=== PATIENT | female | born 1955 | race American Indian/Alaskan Native ===

== ENCOUNTER 2020-09-02 13:30 | Outpatient (CLI) | payer BC, OTHER ==
--- NOTE | 2020-09-02 16:58 | Vascular Lab Report ---
DUPLEX DOPPLER LOWER EXTREMITY ARTERIAL, BILATERAL INDICATION / CLINICAL INFORMATION: claudication. History of hyperlipidemia. Possible aortic aneurysm. 20 year pack history of smoking. TECHNIQUE: Arterial duplex examination of both lower extremities performed using B-mode, color flow a nd spectral Doppler assessment. FINDINGS: RIGHT: - Atherosclerotic Plaque: Mild atherosclerotic plaque. - Elevated Velocity (>200 cm/s): None. - Abnormal Waveform: None. LEFT: - Atherosclerotic Plaque: Mild atherosclerotic plaque. - Elevated Velocity (>200 cm/s): None. - Abnormal Waveform: None. ADDITIONAL FINDINGS: None. Right JOSELO: Not obtained Left JOSELO: Not obtained IMPRESSION: 1. No significant lower extremity peripheral artery disease. Ankle-Brachial Index (JOSELO): - Calcified arteries > 1.4 - Normal = 0.9-1.4 - Mild PAD = 0.7-0.89 - Moderate PAD = 0.51-0.69 - Severe PAD < 0.5 Doppler Waveform: - Triphasic is normal. - Biphasic is abnormal if clear transition from triphasic signal along vascular tree. - Monophasic is abnormal. Signer Name: Israel Alcantara MD Signed: 09/02/2020 4:53 PM Workstation Name: [id number]
--- NOTE | 2020-09-02 16:58 | Vascular Lab Report ---
DUPLEX DOPPLER ULTRASOUND CAROTID, BILATERAL INDICATION / CLINICAL INFORMATION: carotid stenosis. COMPARISON: None available. FINDINGS: RIGHT CAROTID: - PLAQUE ESTIMATE (%): < 50% - CCA velocity: 65 cm/sec. - ICA peak systolic velocity: 52 cm/sec. - ICA/CCA PSV Ratio: Less than 2 Right Vertebral Artery: Antegrade flow. LEFT CAROTID: - PLAQUE ESTIMATE (%): < 50% - CCA velocity: 47 cm/sec. - ICA peak systolic velocity: 74 cm/sec. - ICA/CCA PSV Ratio: Less than 2 Left Vertebral Artery: Antegrade flow. IMPRESSION: 1. Right Internal Carotid Artery: Less than 50% diameter stenosis. 2. Left Internal Carotid Artery: Less than 50% diameter stenosis. Velocity criteria are extrapolated from diameter data as defined by the Society of Radiologists in Ul trasound Consensus Conference, Radiology 2003; 229;340-346. NO STENOSIS (NORMAL) - Plaque = none; ICA PSV < 125 cm/sec; ICA/CCA PSV Ratio < 2.0 <50% STENOSIS - Plaque < 50%; ICA PSV < 125 cm/sec; ICA/CCA PSV Ratio < 2.0 50-69% STENOSIS - Plaque > 50%; ICA PSV = 125-230 cm/sec; ICA/CCA PSV Ratio = 2.0-4.0 >70% BUT <100% STENOSIS - Plaque > 50%; ICA PSV > 230 cm/sec; ICA/CCA PSV Ratio > 4.0 NEAR OCCLUSION - Plaque = visible lumen; ICA PSV = high/low/none; ICA/CCA PSV Ratio = variable TOTAL OCCLUSION - Plaque = no lumen; ICA PSV = none; ICA/CCA PSV Ratio = N/A Signer Name: Hernandez Cheng MD Signed: 09/02/2020 4:54 PM Workstation Name: [id number]
== END 2020-09-02 13:31 | disposition home or self-care (01) ==
LOC: VAS 13:30
PROVIDERS: ATTEND Surgery Vascular Surgery
DX: I70.213 Atherosclerosis of native arteries of extremities with intermittent claudication, bilateral legs (principal)
CPT/HCPCS: 93880; 93925

== ENCOUNTER 2021-01-06 09:35 | Outpatient (CLI) | payer OTHER ==
[2021-01-06 10:47] LABS: Blood Urea Nitrogen 10 mg/dL (7-17)
--- NOTE | 2021-01-06 13:38 | Cat Scan Report ---
CTA ABDOMEN, PELVIS, AND LOWER EXTREMITIES WITH CONTRAST INDICATION: ABDOMINAL AORTIC ANEURYSM W/O RUPTURE. TECHNIQUE: Axial CT images were obtained through the abdomen, pelvis and lower extremities after injection of 10 0 cc Omnipaque 350 IV contrast. 3 plane MIP reconstructions were produced. All CT scans at this [facility] ion are performed using CT dose reduction for ALARA by means of automated exposure control. COMPARISON: Bilateral lower semierect arterial Doppler performed on 09/02/2020. FINDINGS: Motion artifact limits the study. CTA ABDOMEN: Abdominal Aorta: An infrarenal abdominal aortic aneurysm measures 4.9 x 4.3 cm in axial dimensions on image 161 of series 2 with a length of 5.3 cm. There is moderate atherosclerosis without other signi ficant abnormalities. Celiac Artery: No significant abnormality. Superior Mesenteric Artery: No significant abnormality. Right Renal Artery: No significant abnormality. Left Renal Artery: No significant abnormality. Inferior Mesenteric Artery: No significant abnormality. CTA PELVIS: RIGHT: - Common Iliac Artery: A right common iliac artery aneurysm measures up to 2.7 cm on image 191 of ser ies 2. There is mild nonobstructive atherosclerosis without other significant abnormalities. - Internal Iliac Artery: There is mild nonobstructive atherosclerosis without other significant abnor malities. - External Iliac Artery: No significant abnormality. LEFT: - Common Iliac Artery: There is mild nonobstructive atherosclerosis without other significant abnorma lities. - Internal Iliac Artery: A 1.5 x 1.4 cm aneurysm is seen arising along the main portion of the vessel on image 221 of series 2. There is mild nonobstructive atherosclerosis without other significant abn ormalities. - External Iliac Artery: There is mild nonobstructive atherosclerosis without other significant abnor malities. CTA LOWER EXTREMITIES: RIGHT LOWER EXTREMITY: - Common Femoral Artery: No significant abnormality. - Superficial Femoral Artery: No significant abnormality. - Profunda Femoral Artery: No significant abnormality. - Popliteal Artery: No significant abnormality. - Anterior Tibial Artery: Patent and normal in caliber as origin with progressively diminutive calibe r and eventual occlusion along the distal third of the leg without distal reconstitution of flow. A p atent dorsalis pedis artery is supplied by collaterals. - Tibioperoneal Trunk: No significant abnormality. - Posterior Tibial Artery: No significant abnormality. - Peroneal Artery: No significant abnormality. - Ankle runoff: 2 vessel. LEFT LOWER EXTREMITY: - Common Femoral Artery: No significant abnormality. - Superficial Femoral Artery: No significant abnormality. - Profunda Femoral Artery: No significant abnormality. - Popliteal Artery: No significant abnormality. - Anterior Tibial Artery: No significant abnormality. - Tibioperoneal Trunk: No significant abnormality. - Posterior Tibial Artery: No significant abnormality. - Peroneal Artery: No significant abnormality. - Ankle runoff: Three vessel. NONTARGET STRUCTURES: CHEST: No significant abnormality. ABDOMEN:No significant abnormality. PELVIS:No significant abnormality. LOWER EXTREMITIES:No significant abnormality. SKELETAL: No acute abnormality. There are moderate degenerative changes of the spine. ADDITIONAL FINDINGS: None. IMPRESSION: 1. Uncomplicated infrarenal abdominal aortic aneurysm measuring 4.9 x 4.3 cm. 2. 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 3. 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 4. No significant abnormality of the arteries of the left lower extremity. 5. Additional findings as above. Signer Name: Blaise Ham MD Signed: 01/06/2021 1:33 PM Workstation Name: [id number]
== END 2021-01-06 09:36 | disposition home or self-care (01) ==
LOC: CT 09:35
PROVIDERS: ATTEND Surgery Vascular Surgery
DX: I71.4 Abdominal aortic aneurysm, without rupture (principal)
CPT/HCPCS: 36415; 75635; 82565; 84520; Q9967

== ENCOUNTER 2021-03-04 06:13 | Day surgery (SDC) | payer OTHER ==
[2021-03-04] MEDS ORDERED: ASPIRIN EC 325 MG TAB PO NR (06:45)
[2021-03-04 07:00] LABS: Basophils % (Auto) 0.7 % (0.0-1.8); Eosinophils # (Auto) 0.2 K/mm3 (0.0-0.4); Eosinophils % (Auto) 3.5 % (0.0-4.3); Hematocrit 36.1 % (30.3-42.9); Lymphocytes # (Auto) 1.5 K/mm3 (1.2-5.4); Lymphocytes % (Auto) 29.2 % (13.4-35.0); Mean Corpuscular HGB Conc 33 % (30-34); Mean Corpuscular Volume 96 fl (79-97); Monocytes # (Auto) 0.6 K/mm3 (0.0-0.8); Monocytes % (Auto) 11.4 % (0.0-7.3); Platelet Count 302 K/mm3 (140-440); Red Blood Count 3.77 M/mm3 (3.65-5.03); Red Cell Distribution Width 13.6 % (13.2-15.2)
[2021-03-04 07:10] LABS: INR 0.97 (0.87-1.13)
[2021-03-04 07:11] LABS: Blood Urea Nitrogen 10 mg/dL (7-17); Calcium 9.5 mg/dL (8.4-10.2); Hemolysis Index 0
[2021-03-04 07:15] LABS: BUN/Creatinine Ratio 25
[2021-03-04] MEDS: SODIUM CHLORIDE 0.9% 500 ML 500 ML IV SCH ×2 (07:25→10:53)
[2021-03-04] MEDS ORDERED: HEPARIN/NS 5000 UNIT/500ML 1,000 ML IR ONE (08:17)
--- NOTE | 2021-03-04 08:31 | Short Stay Summary ---
Short Stay Documentation Date of service: 03/04/21 Narrative H&P: This is a 65-year-old female comes here for preoperative evaluation prior to abdominal aortic aneurysm repair. Patient has history of hypertension for the last few months and has been on medications. Within the last few months she also has noticed exertional dyspnea particularly when she is walking on the steps. She feels quite winded and has difficulty walking any distance patient has no chest pain or palpitations. No previous mitral infarction or congestive heart failure. No history of diabetes or hyperlipidemia. Patient is a nonsmoker. She used to smoke but stopped in 2010. Drinks I'll call additionally. Family history is positive for hypertension and several snacks. No major surgeries in the past. - History Past Medical History: hypertension Past Surgical History: No surgical history Social history: smoking (history of smoking), other (HTN) - Allergies and Medications Current Medications: Allergies Penicillins Allergy (Verified 03/04/21 06:43) Unknown Home Medications Medication Instructions Recorded Confirmed Last Taken Type Amlodipine Besylate [Norvasc] 5 mg PO DAILY 03/04/21 03/04/21 03/03/21 History Aspirin/Acetaminophen/Caffeine 1 each PO DAILY PRN 03/04/21 03/04/21 03/03/21 History [YosvanyExepron's Ex-Str Powder Packet] Diclofenac Sodium 75 mg PO BID PRN 03/04/21 03/04/21 1 Week Ago History ~02/25/21 Active Medications Sodium Chloride (Nacl 0.9% 500 Ml) 500 mls @ 50 mls/hr IV DIRECT JAIMEE Stop: 03/04/21 16:59 Last Admin: 03/04/21 07:25 Dose: 50 mls/hr Documented by: - Physical exam General appearance: no acute distress HEENT: PERRLA Lungs: Clear to auscultation Heart: Regular rate, Normal S1, Normal S2 Gastrointestinal: normoactive bowel sounds Extremities: pulses intact Neurological: Normal gait - Brief post op/procedure progress note Date of procedure: 03/04/21 Pre-op diagnosis: pre-op eval Post-op diagnosis: other (normal coronaries) Anesthesia: local Estimated blood loss: minimal - Disposition Condition at discharge: Good Disposition: 01 HOME / SELF CARE / HOMELESS Short Stay Discharge Plan Activity: advance as tolerated Diet: low fat, low cholesterol, low salt Wound: keep clean and dry, per your surgeon's advice Follow up with: PRIMARY CARE, [Primary Care Provider] - 7 Days Forms: CardCath PCI D/C Instructions
[2021-03-04] MEDS: MIDAZOLAM 2 MG/2 ML INJ ONE ×3 (08:45→08:55)
[2021-03-04] MEDS: fentaNYL 100 MCG/2 ML INJ ONE ×3 (08:45→08:55)
[2021-03-04] MEDS: HEPARIN 10,000 UNITS/10 ML VIAL ONE ×2 (08:46→09:03)
[2021-03-04] MEDS: LIDOCAINE (2%) 20 MG/1 ML VIAL 20 ML MDV INFILTRATI ONE ×2 (08:46→09:00)
[2021-03-04] MEDS: VERAPAMIL 5 MG/2 ML INJ ONE ×2 (08:46→09:03)
--- NOTE | 2021-03-04 11:28 | Electrocardiograph Report ---
[facility] Test Date: 2021-03-04 Test Time: 07:14:09 Pat Name: KEKE GILMAN Department: Room: Gender: F Technical Sales Associate: SAUNDRA : 1955 Requested By: LINDA JERRY Order Number: [id number] Reading MD: Montse Miller Measurements Intervals [place] Rate: 98 P: 48 NM: 148 QRS: 44 QRSD: 74 T: 48 QT: 341 QTc: 434 Interpretive Statements Sinus rhythm No previous ECG available for comparison Electronically Signed On 03-04-2021 11:28:28 EST by Montse Miller
[2021-03-04 11:34] VITALS: BP 119/82
--- NOTE | 2021-03-04 12:53 | Cardiac Catherization Report ---
DATE OF SERVICE: 03/04/2021 CARDIAC CATHETERIZATION REPORT INDICATIONS: A 65-year-old female with a diagnosis of essential hypertension. She is scheduled for abdominal aortic aneurysm repair by Dr. Giovanni Bhatia and being evaluated preoperatively and for shortness of breath. Underwent a pharmacological stress testing on 02/27/2021, which was found to be mildly positive with a mild to moderately reduced perfusion defects of small to medium sized in the basal, mid apical, and inferoapical defects. Also, in the basal and mid septal segments are partially reversible. Ejection fraction was 59%. Echocardiogram was unremarkable except septal wall appears to be mildly hypokinetic. DESCRIPTION OF PROCEDURE: The patient was brought to the catheterization laboratory in a fasting condition. The patient was explained of the procedure, potential complications, and alternatives of therapy available. The patient was felt to be an appropriate candidate for moderate sedation and received IV Versed and fentanyl starting at 8:51 a.m. The patient was monitored throughout the procedure with pulse oximetry, EKG monitoring and hemodynamic monitoring. Subsequently, right wrist area was prepared with Betadine solution. Sterile drapes were applied. Local anesthesia was given using 2% lidocaine. Right radial artery puncture was made using 21-gauge arterial puncture needle. Subsequently, 5F Slender sheath was introduced and a 0.035-inch Glidewire was used to enter the ascending aorta. Subsequently, a 5-Amharic multipurpose catheter was used to obtain the angiograms of the left coronary artery in multiple views followed by angiogram of the left ventricle performed using hand injection in BIGGS projection. A 6-Amharic JR4 catheter was used to obtain the angiograms of the right coronary artery. At the end of the procedure, catheter and sheath were removed and hemostasis was obtained using radial band. At the end of the procedure, the patient was communicating normally, breathing normally. No focal deficits noted. The patient's moderate sedation started at 8:51 a.m. and ended at 9:09 a.m. The patient was transferred to the outpatient area in stable condition. Following findings were noted. HEMODYNAMICS: 1. Aortic pressure 150/90. Left ventricular pressure 150/21. No gradient across the aortic valve. Estimated ejection fraction 55%. 2. Left ventriculogram done in BIGGS projection showed normal sized left ventricle with normal contractility. End-diastolic and systolic volumes are normal. End-diastolic pressure is mildly elevated up to 21 mmHg. 3. Right coronary artery dominant vessel arises normally from right coronary cusp. Angiographically smooth and normal. 4. Left coronary artery arises normally from left coronary cusp. The left main is large, smooth and normal. LAD shows very minimal, less than 5% irregularities in the mid part. Otherwise, arteries are tortuous consistent with hypertensive disease, otherwise rest of the coronaries are angiographically smooth and normal. FINAL IMPRESSION: 1. Normal-sized left ventricle with normal contractility and mildly elevated end-diastolic pressure. 2. Minimal coronary artery disease, mainly in the LAD. Circumflex and dominant RCA are angiographically smooth and normal. PLAN: At this time is to continue risk factor modification and control of blood pressure. I explained the findings to the patient. The patient is "cleared" for her abdominal aortic aneurysm repair. No untoward complications were noted. TID: [id number] RECEIPT: [id number] HERNAN/CLARITA/SOPHIE SUMMERS
== END 2021-03-04 12:45 | disposition home or self-care (01) ==
LOC: CATHLABREC 06:13
PROVIDERS: ATTEND Internal Medicine
DX: R94.39 Abnormal result of other cardiovascular function study (principal); I25.10 Atherosclerotic heart disease of native coronary artery without angina pectoris; I10 Essential (primary) hypertension; Z87.891 Personal history of nicotine dependence; Z79.899 Other long term (current) drug therapy; Z72.89 Other problems related to lifestyle; Z98.890 Other specified postprocedural states; Z79.82 Long term (current) use of aspirin; Z88.0 Allergy status to penicillin
CPT/HCPCS: 36415; 80048; 85025; 85610; 85730; 93005; 93458; 99156; C1894; J1644; J2250; J3010; J7040; Q9967

== ENCOUNTER 2021-05-13 06:31 | Inpatient (IN) | payer OTHER ==
[2021-05-13] MEDS ORDERED: SODIUM CHLORIDE 0.9% 1000 ML 1,000 ML IV SCH ×3 (07:00→17:15)
[2021-05-13 07:22] LABS: Hematocrit 36.7 % (30.3-42.9); Hemoglobin 12.1 gm/dl (10.1-14.3); Mean Corpuscular HGB Conc 33 % (30-34); Mean Corpuscular Volume 93 fl (79-97); Platelet Count 291 K/mm3 (140-440); Red Blood Count 3.95 M/mm3 (3.65-5.03); Red Cell Distribution Width 14.6 % (13.2-15.2)
[2021-05-13 07:34] LABS: INR 0.87 (0.87-1.13)
[2021-05-13 07:35] LABS: Partial Thromboplastin Time 26.5 Sec. (24.2-36.6)
[2021-05-13 07:37] LABS: Blood Urea Nitrogen 14 mg/dL (7-17); Calcium 9.8 mg/dL (8.4-10.2); Hemolysis Index 1
[2021-05-13 07:39] LABS: BUN/Creatinine Ratio 35
--- NOTE | 2021-05-13 07:52 | Anesthesia Consultation ---
Anesthesia Consult and Med Hx - Airway Anesthetic Teeth Evaluation: Partials ROM Head & Neck: Adequate Mental/Hyoid Distance: Adequate Mallampati Class: Class III Intubation Access Assessment: Probably Good - Pulmonary Exam CTA: Yes - Cardiac Exam Cardiac Exam: RRR - Pre-Operative Health Status ASA Pre-Surgery Classification: ASA3 Proposed Anesthetic Plan: MAC - Pulmonary Hx Smoking: Yes Hx Asthma: No Hx Respiratory Symptoms: Yes (COVID 04/28/2021) SOB: Yes COPD: No Home Oxygen Therapy: No Hx Pneumonia: No Hx Sleep Apnea: No - Cardiovascular System Hx Hypertension: Yes Hx Coronary Artery Disease: No Hx Heart Attack/AMI: No Hx Angina: No Hx Percutaneous Transluminal Coronary Angioplasty (PTCA): No Hx Cardia Arrhythmia: No Hx Pacemaker: No Hx Internal Defibrillator: No Hx Valvular Heart Disease: No Hx Heart Murmur: No Hx Peripheral Vascular Disease: No - Central Nervous System Hx Neuromuscular Disorder: No Hx Seizures: No CVA: No Hx Psychiatric Problems: No - Gastrointestinal Hx Ulcer: No Hx Gastroesophageal Reflux Disease: No - Endocrine Hx Renal Disease: No Hx End Stage Renal Disease: No Hx Cirrhosis: No Hx Liver Disease: No Hx Insulin Dependent Diabetes: No Hx Non-Insulin Dependent Diabetes: No Hx Thyroid Disease: No Hx Hypothyroidism: No Hx Hyperthyroidism: No - Hematic Hx Anemia: No Hx Sickle Cell Disease: No - Other Systems Hx Alcohol Use: Yes Hx Substance Use: No Hx Cancer: No Hx Obesity: No
--- NOTE | 2021-05-13 07:53 | Anesthesia Day of Surgery ---
Anesthesia Day of Surgery - Day of Surgery Patient Examined: Yes Patient H&P Reviewed: Yes Patient is NPO: Yes Beta Blockers: No Cardiac Clearance: No Pulmonary Clearance: No
--- NOTE | 2021-05-13 08:12 | Short Stay Summary ---
Short Stay Documentation Date of service: 05/13/21 Narrative H&P: The patient is a 65-year-old female with a history of an abdominal aortic aneurysm and a right common iliac artery aneurysm. Her abdominal aortic aneurysm is approximately 5 cm with a common iliac artery aneurysm of approximately 3.8 cm. She underwent coil embolization of her right hypogastric artery and now requires endovascular repair of her abdominal aortic aneurysm. Her initial repair was delayed secondary to COVID infection. She is currently asymptomatic and has no abdominal tenderness. She has no additional complaints at this time. - History Past Medical History: hypertension, other (Ovarian cyst, tubal , Abdominal Aortic Aneurysm, Right Common Iliac Artery Aneurysm) Past Surgical History: , Other (Bilateral salpingectomy) Social history: no significant social history - Allergies and Medications Current Medications: Allergies Penicillins Allergy (Verified 03/04/21 06:43) Unknown Home Medications Medication Instructions Recorded Confirmed Last Taken Type Amlodipine Besylate [Norvasc] 5 mg PO DAILY 03/04/21 03/04/21 03/03/21 History Aspirin/Acetaminophen/Caffeine 1 each PO DAILY PRN 03/04/21 03/04/21 03/03/21 History [[employer]'s Ex-Str Powder Packet] Diclofenac Sodium 75 mg PO BID PRN 03/04/21 03/04/21 1 Week Ago History ~02/25/21 Active Medications Sodium Chloride (Nacl 0.9% 1000 Ml) 1,000 mls @ 42 mls/hr IV DIRECT JAIMEE Last Admin: 05/13/21 07:55 Dose: 42 mls/hr - Physical exam General appearance: no acute distress Lungs: Normal air movement Breasts: deferred Heart: Regular rate Gastrointestinal: pulsatile mass (Nontender) Female Genitourinary: deferred Rectal Exam: deferred Extremities: no ischemia, pulses intact - Brief post op/procedure progress note Date of procedure: 05/13/21 Pre-op diagnosis: Abdominal Aortic Aneurysm without Mention of Rupture Post-op diagnosis: same Procedure: 1. Ultrasound-Guided Access Right Common Femoral Artery 2. Ultrasound-Guided Access Left Common Femoral Artery 3. Catheter in Aorta 4. Diagnostic Aortogram 5. Percutaneous Repair of Abdominal Aortic Aneurysm with 20 mm Era Aortic Body 1. 10 x 160 mm Ovation iX Ipsilateral Extension 2. 16 x 120 mm Ovation iX Contralateral Iliac Limb 6. Radiologic Supervision with Interpretation Anesthesia: MAC, local Surgeon: OSMIN KING Estimated blood loss: 50-100ml Pathology: none Condition: stable - Hospital course Hospital course: The patient was taken to the [facility] and underwent a percutaneous endovascular pair of an abdominal aortic aneurysm on 05/13/2021. She tolerated the procedure w ell and was transferred to the recovery area after the procedure. She was eventually transferred to the [facility] and initially did well however overnight began complaining of some chest discomfort associated with tachycardia. The tachycardia and chest discomfort was persistent and lasted into the following morning on postoperative day #1. The patient had cardiac enzymes as well as additional labs and an EKG there were all negative. Her serial cardiac enzymes remain negative so I discussed the case with the cardiology team who recommended IV fluids as well as beta-blockade with metoprolol to control her heart rate. Her physical exam was benign without evidence of hematoma and her H&H remained stable. We watched her overnight and on postoperative day #2 she complained of some shortness of breath and had a CTA of her chest to rule out a pulmonary embolus which was negative. The CTA also showed enough of her abdomen to reveal that the endograft was in adequate position without any evidence of proximal type Ia leaks. Given her overall stability and the fact that her oxygen saturations were 100% on room air and her physical exam was benign the decision was made to discharge on postoperative day #2. - Disposition Condition at discharge: Good Disposition: 01 HOME / SELF CARE / HOMELESS Short Stay Discharge Plan Activity: other (No heavy lifting for 2 weeks.) Wound: open to air, keep clean and dry, other (Okay to shower and wash the wounds with soap and water but do not soak in water for 2 weeks.) Follow up with: DR JESSICA [Other] - 7 Days OSMIN KING MD [Staff Physician] - 14 Days Prescriptions: Metoprolol [Lopressor TAB] 25 mg PO BID #180 tablet HYDROcodone/APAP 7.5-325 [[place] 7.5/325] 1 each PO Q6HR PRN #40 tablet PRN Reason: Pain Clopidogrel [Plavix] 75 mg PO QDAY #90 tablet
[2021-05-13] MEDS ORDERED: CLINDAMYCIN 600 MG/50 mL 600 MG/50 ML BAG IV ONE (08:16)
[2021-05-13] MEDS ORDERED: HEPARIN/NS 5000 UNIT/500ML 1,000 ML IR ONE (08:30)
[2021-05-13] MEDS ORDERED: CLINDAMYCIN 600 MG/50 mL 600 MG/50 ML BAG IV NR (09:00)
[2021-05-13] MEDS ORDERED: KETAMINE/STERILE WATER 50 MG/ML SYRINGE ONE (09:13)
[2021-05-13] MEDS ORDERED: ROCURONIUM 50 MG/5 ML INJ IV ONE (09:13)
[2021-05-13] MEDS ORDERED: HEPARIN/NS 5000 UNIT/500ML 500 ML IR ONE ×2 (09:27→09:52)
[2021-05-13] MEDS: LIDOCAINE (2%) 20 MG/1 ML VIAL 20 ML MDV INFILTRATI ONE ×2 (09:29→09:35)
[2021-05-13] MEDS: HEPARIN 10,000 UNITS/10 ML VIAL ONE ×2 (09:42→10:28)
[2021-05-13] MEDS ORDERED: MORPHINE 2 MG/1 ML INJ IV PRN (11:13)
--- NOTE | 2021-05-13 11:13 | Operative Report ---
Operative Report Operative Report: Date of Procedure: 05/13/2021 Pre-operative Diagnosis: Abdominal Aortic Aneurysm without Mention of Rupture Post-operative Diagnosis: Same Procedure(s): 1. Ultrasound-Guided Access Right Common Femoral Artery 2. Ultrasound-Guided Access Left Common Femoral Artery 3. Catheter in Aorta 4. Diagnostic Aortogram 5. Percutaneous Repair of Abdominal Aortic Aneurysm with 20 mm [place] Aortic Body 1. 10 x 160 mm Ovation iX Ipsilateral Extension 2. 16 x 120 mm Ovation iX Contralateral Iliac Limb 6. Radiologic Supervision with Interpretation Surgeon: Giovanni Bhatia M.D. 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 She had embolization of her right hypogastric artery and now returns for endovascular repair of her abdominal aortic aneurysm. She has been given the risk, benefits, and alternative procedures and consented to the procedure. Angiographic Findings: The diagnostic aortogram revealed a large infrarenal abdominal aortic aneurysm without evidence of rupture. Bilateral renal arteries were patent with the right renal artery being the most distal renal artery. There was a 50% stenosis of the origin of the right common iliac artery and a moderate aneurysm of the right common iliac artery. The right hypogastric artery had been embolized with coils in the left hypogastric artery was patent without evidence of flow- limiting stenosis. After intervention the aneurysm was adequately sealed without evidence of endoleak's. Bilateral renal arteries were patent without evidence of coverage or emboli. The right common iliac artery stenosis was reduced to less than 10% residual stenosis. The right common iliac artery aneurysm was adequately sealed without evidence of endoleak. The left hypogastric artery was patent without evidence of emboli. Description of Procedure: The patient was brought to the Drying Tumbler Operator and laid in supine position. After she was adequately sedated she was prepped and draped in normal sterile fashion. Ultrasound was used to identify the right common femoral artery and confirmed patency. Once patency was confirmed the overlying skin and soft tissue was anesthetized with lidocaine. An 11 blade was used to make a small stab incision and then a curved hemostat was used to bluntly dissect down to the anterior surface of the right common femoral artery. A 21-gauge micropuncture needle was used with ultrasound guidance to enter the right common femoral artery and a 0.018 micropuncture wire was advanced into the artery. The needle was removed and the micropuncture sheath was placed by Seldinger technique. The dilator and wire were removed and a 0.035 Bentson wire was advanced into the aorta. The micropuncture sheath was then removed and a 6 [place] sheath was then inserted to dilate the tract as well as the arteriotomy. The 6 [place] sheath was then removed and a "Pre-Close Technique" was performed by using a Perclose ProGlide Closure Device placed at the 2 o'clock position followed by an additional Perclose ProGlide Perclose Device placed at the 11 o'clock position. Rubber- shod's were placed on the sutures of each device and an 11 [place] 11 cm sheath was then inserted into the right femoral artery. Ultrasound was then used to identify the left common femoral artery confirmed patency. Once patency was confirmed the overlying skin and soft tissue was anesthetized with lidocaine. An 11 blade was used to make a small stab incision and then a curved hemostat was used to bluntly dissect down to the anterior surface of the left common femoral artery. A 21-gauge micropuncture needle was used to access to the artery using ultrasound guidance and then a 0.018 micropuncture wire was advanced into the artery. The needle was removed and a micropuncture sheath was placed by side under technique. The dilator and wire were removed and a 0.035 Bentson wire was advanced into the aorta. The micropuncture sheath was removed and a 6 [place] sheath was placed to dilate the tract and the arteriotomy. The 6 [place] sheath was then removed and a "Pre-Close Technique" was performed on the left femoral arteriotomy by placing a Perclose ProGlide Closure Device at the 11 o'clock position followed by a Perclose ProStyle Closure Device at the 2 o'clock position. A rubber-shod was placed on the sutures and an 11 [place] 11 cm sheath was placed in the left femoral arteriotomy. At this point the patient was systemically heparinized with 5000 units of heparin IV. I then advanced a pig tail catheter up the left common femoral artery to the level of the renal arteries at L2. I used a vertebral catheter to exchange the right Bentson wire to an Amplatz wire. I removed the 11 [place] sheath from the right common femoral arteriotomy and advanced the 20 mm [place] Aortic Body into position. A diagnostic aortogram was performed demonstrating the right renal artery as the lowest renal artery. The [place] aortic body was oriented and then positioned approximately 1 cm proximal to the landing zone and then the delivery system outer sheath was retracted until the sheath retraction met the handle. Orientation of the graft was then verified. Once this was verified the first segment of the proximal stent was deployed by turning the first stent release knob one quarter turn counterclockwise and pulling the knob and attached wire from the handle. I then used a total of 7 mL of contrast at a 4-1 mix to balloon the mid crown using the balloon injection port. I deflated the balloon and then ensured that the radiopaque markers were positioned appropriately. I advanced the [place] wire into the pigtail catheter and pulled the catheter and wire well below the proximal stent. I deployed the remainder of the proximal stent by turning the second stent release knob one quarter turn counterclockwise and pulling the knob as well as the attached wire from the handle. I then removed the [place] From the polymer injection port and attached the polymer syringe. I removed the Amplatz wire from the aortic main body and then I connected the handle to the polymer beginning the polymer fill process. As the polymer began to fill the graft I used a Navicross catheter and 0.035 floppy Glidewire and was able to cannulate the ipsilateral gate. After the polymer had filled the graft and settled for approximately 14 minutes I ballooned the proximal rings with the balloon injection port for 30 seconds. I advanced the catheter wire into the suprarenal aorta and then remove the Navicross catheter and advanced a pigtail catheter over the wire to confirm that I was indeed within the aortic graft body. Once I confirmed this I advanced the pigtail catheter back up the left side and performed a hand-injection through the 11 [place] sheath to identify the hypogastric artery and measured at the needed length of the contralateral limb. I advanced an Amplatz wire into the aorta and the remove the 11 [place] sheath. I advanced a 16 x 120 mm Ovation iX contralateral limb into the main body into the proximal iliac limb radiopaque markers aligned with the most proximal half ring of the aortic body. I then retracted the sheath to deploy the iliac limb ensuring that I preserve the left hypogastric artery. I then maintained position of the sheath and retracted the catheter handle to receive the nose and the end of the delivery system outer sheath. I advanced the sheath into the limb and then withdrew the inner catheter. I released the catheter from the aortic body by turning the third release knob one quarter turn counterclockwise and then steadily pulling the attached wire from the handle. Stable as the sheath and retracted the catheter handle to proceed to nose: Into the end of the delivery system outer sheath. I remove the inner sheath catheter and then advanced a pigtail catheter into the aorta to measure for the appropriate ipsilateral limb. Then remove the aortic body sheath and advanced the ipsilateral limb delivery sheath into position. I advanced this to the appropriate level and deployed it. I then ballooned the limbs using 12 x 60 EverCross Balloons at 5 kaycee simultaneously. I removed the balloons and advanced the pigtail catheter up the left and performed a final aortogram revealing no evidence of an Endoleak, both renal arteries were patent, and the left hypogastric artery was patent. I have asked the Bentson wire into the pigtail catheter and removed it. Then exchanged the right Amplatz wire for a Bentson wire. I then remove the sheath from the right femoral artery and used the previously placed ProGlide's to close the right femoral arteriotomy without any evidence of bleeding. I removed the sheath from the left femoral arterio abhinav used the previously placed ProGlide's to close the left femoral arteriotomy without any evidence of bleeding. Both incisions were then anesthetized with lidocaine and then closed with 4-0 Monocryl in interrupted fashion and dressed with Dermabond. The patient tolerated the procedure well. All sponge, needle, and instrument counts were correct. The patient was taken to the recovery area in stable condition.
[2021-05-13] MEDS: ACETAMINOPHEN 325 MG TAB PO PRN (14:47)
[2021-05-13] MEDS ORDERED: SIMETHICONE 80 MG CHEW TAB PO ONE (16:00)
[2021-05-13] MEDS: CLINDAMYCIN 600 MG/50 mL 600 MG/50 ML BAG IV SCH (18:24)
[2021-05-13] MEDS: HYDROmorphone 1 MG/1 ML INJ IV PRN ×2 (19:31→23:39)
[2021-05-13] MEDS: HYDROcodone/ACETAMINOPHEN 5-325 MG TAB PO PRN (23:04)
[2021-05-14] MEDS: CLINDAMYCIN 600 MG/50 mL 600 MG/50 ML BAG IV SCH (01:32)
[2021-05-14] MEDS: HYDROmorphone 1 MG/1 ML INJ IV PRN ×2 (03:55→08:24)
[2021-05-14] MEDS: amLODIPine 5 MG TAB PO SCH (09:44)
[2021-05-14] MEDS: CLOPIDOGREL 75 MG TAB PO SCH (09:45)
[2021-05-14] MEDS: ENOXAPARIN 40 MG/0.4 ML INJ SUB-Q SCH (09:45)
--- NOTE | 2021-05-14 10:20 | Progress Note ---
Assessment and Plan The patient is POD# 1 s/p PEVAR She is complaining of pain and pressure in her left chest that began around 11 pm last night. Review of the vital signs reveals her tachycardia began around the same time. Per report, she received a 1 liter fluid bolus, overnight however this did not resolve the tachycardia. I will check labs including cardiac enzymes, H/H, and BMP Her pre-op cardiac clearance included a negative stress test and negative cardiac cath however given her symptoms, must rule out [place]. Her groin access sites are soft, and although bleeding is unlikely, cannot be ruled out. Will follow up the labs and plan any further management based off of the findings. Subjective Date of service: 05/14/21 Principal diagnosis: s/p EVAR Interval history: Patient complains of nausea but no vomiting. She also states she began experiencing left chest pain and pressure around 11 pm overnight. She states the pain has resolved however she just received Dilaudid. She has no additional complaints at this time. Objective - Constitutional Vitals: Vital Signs - 12hr 05/13/21 05/13/21 05/13/21 22:30 23:00 23:04 Temperature Pulse Rate 94 H 106 H Pulse Rate [ From Monitor] Respiratory 21 36 H 27 H Rate Blood Pressure 134/77 134/77 O2 Sat by Pulse 100 88 Oximetry 05/13/21 05/13/21 05/13/21 23:30 23:39 23:40 Temperature Pulse Rate 114 H Pulse Rate [ From Monitor] Respiratory 18 15 18 Rate Blood Pressure 158/83 O2 Sat by Pulse 99 Oximetry 05/14/21 05/14/21 05/14/21 00:00 00:09 00:30 Temperature 100.1 F H Pulse Rate 110 H 108 H Pulse Rate [ From Monitor] Respiratory 18 18 37 H Rate Blood Pressure 146/77 146/77 O2 Sat by Pulse 99 100 Oximetry 05/14/21 05/14/21 05/14/21 01:00 01:30 02:00 Temperature Pulse Rate 96 H 105 H 104 H Pulse Rate [ From Monitor] Respiratory 28 H 12 17 Rate Blood Pressure 132/75 132/75 132/75 O2 Sat by Pulse 98 97 100 Oximetry 05/14/21 05/14/21 05/14/21 02:30 03:00 03:30 Temperature Pulse Rate 116 H 105 H 109 H Pulse Rate [ 105 H From Monitor] Respiratory 22 20 20 Rate Blood Pressure 133/85 151/87 151/87 O2 Sat by Pulse 99 99 100 Oximetry 05/14/21 05/14/21 05/14/21 03:49 03:55 04:00 Temperature 99.7 F H Pulse Rate 121 H Pulse Rate [ From Monitor] Respiratory 16 16 Rate Blood Pressure 168/100 O2 Sat by Pulse 99 Oximetry 05/14/21 05/14/21 05/14/21 04:20 04:30 05:00 Temperature Pulse Rate 111 H 111 H 111 H Pulse Rate [ From Monitor] Respiratory 16 16 Rate Blood Pressure 179/91 158/99 O2 Sat by Pulse 99 99 Oximetry 05/14/21 05/14/21 05/14/21 05:20 05:30 05:40 Temperature Pulse Rate 112 H 113 H 114 H Pulse Rate [ From Monitor] Respiratory 17 16 17 Rate Blood Pressure 179/92 154/102 154/102 O2 Sat by Pulse 99 99 99 Oximetry 05/14/21 05/14/21 05/14/21 05:50 06:00 06:10 Temperature Pulse Rate 112 H 119 H 118 H Pulse Rate [ From Monitor] Respiratory 17 22 18 Rate Blood Pressure 164/101 150/90 150/90 O2 Sat by Pulse 99 99 100 Oximetry 05/14/21 05/14/21 05/14/21 06:20 06:30 06:40 Temperature Pulse Rate 115 H 117 H 118 H Pulse Rate [ From Monitor] Respiratory 19 18 23 Rate Blood Pressure 146/93 146/116 146/116 O2 Sat by Pulse 100 100 100 Oximetry 05/14/21 05/14/21 05/14/21 06:50 07:00 07:10 Temperature Pulse Rate 116 H 115 H 118 H Pulse Rate [ 120 H From Monitor] Respiratory 18 20 20 Rate Blood Pressure 170/94 199/96 163/88 O2 Sat by Pulse 100 99 98 Oximetry 05/14/21 05/14/21 05/14/21 07:20 07:30 07:40 Temperature Pulse Rate 117 H 118 H 123 H Pulse Rate [ From Monitor] Respiratory 21 26 H 26 H Rate Blood Pressure 170/95 175/101 175/101 O2 Sat by Pulse 99 99 99 Oximetry 05/14/21 05/14/21 05/14/21 07:50 08:00 08:10 Temperature 98 F Pulse Rate 122 H 118 H 118 H Pulse Rate [ From Monitor] Respiratory 20 22 24 Rate Blood Pressure 179/100 179/96 179/96 O2 Sat by Pulse 100 99 100 Oximetry 05/14/21 05/14/21 05/14/21 08:20 08:30 08:40 Temperature Pulse Rate 118 H 116 H 116 H Pulse Rate [ From Monitor] Respiratory 23 16 17 Rate Blood Pressure 191/88 165/91 165/91 O2 Sat by Pulse 100 100 100 Oximetry 05/14/21 05/14/21 05/14/21 08:50 09:00 09:10 Temperature Pulse Rate 114 H 110 H 115 H Pulse Rate [ From Monitor] Respiratory 18 17 17 Rate Blood Pressure 159/87 173/83 173/83 O2 Sat by Pulse 99 100 99 Oximetry 05/14/21 09:44 Temperature Pulse Rate 120 H Pulse Rate [ From Monitor] Respiratory Rate Blood Pressure 165/98 O2 Sat by Pulse Oximetry General appearance: Present: no acute distress - Respiratory Respiratory effort: normal - Cardiovascular Heart rate: 130 Extremities: no ischemia, pulses intact (thready pedal pulses bilaterally) Extremity abnormal: other (bilateral groin access sites are soft with incisions intact and no evidence of hematoma) - Gastrointestinal General gastrointestinal: Present: soft, non-tender, non-distended Rectal Exam: deferred - Genitourinary Female genitourinary: deferred - Labs CBC & Chem 7: 05/13/21 07:10 05/13/21 07:10 Medications & Allergies - Medications Allergies/Adverse Reactions: Allergies Penicillins Allergy (Verified 05/13/21 20:05) Unknown Home Medications: Home Medications Medication Instructions Recorded Confirmed Last Taken Type Amlodipine Besylate [Norvasc] 5 mg PO DAILY 03/04/21 05/13/21 05/12/21 History Active Medications: Generic Name Dose Route Start Last Admin Trade Name Freq PRN Reason Stop Dose Admin Acetaminophen 650 mg 05/13/21 11:13 05/13/21 14:47 Acetaminophen 325 Mg Tab PO 650 mg Q4H PRN Administration Pain MILD(1-3)/Fever >100.5/ROMERO Hydrocodone Bitart/Acetaminophen 2 each 05/13/21 11:13 05/13/21 23:04 Hydrocodone/Acetaminophen 5-325 Mg Tab PO 2 each Q6H PRN Administration Pain, Moderate (4-6) Amlodipine Besylate 5 mg 05/14/21 10:00 05/14/21 09:44 Amlodipine 5 Mg Tab PO 5 mg DAILY JAIMEE Administration Clopidogrel Bisulfate 75 mg 05/14/21 10:00 05/14/21 09:45 Clopidogrel 75 Mg Tab PO 75 mg QDAY JAIMEE Administration Enoxaparin Sodium 40 mg 05/14/21 10:00 05/14/21 09:45 Enoxaparin 40 Mg/0.4 Ml Inj SUB-Q 40 mg QDAY JAIMEE Administration Hydromorphone HCl 0.5 mg 05/13/21 11:13 05/14/21 08:24 Hydromorphone 1 Mg/1 Ml Inj IV 0.5 mg Q3H PRN Administration Pain , Severe (7-10) Sodium Chloride 1,000 mls @ 42 mls/hr 05/13/21 07:00 05/13/21 07:55 Nacl 0.9% 1000 Ml IV 42 mls/hr DIRECT JAIMEE Administration Morphine Sulfate 2 mg 05/13/21 11:13 Morphine 2 Mg/1 Ml Inj IV Q4H PRN Pain, Moderate (4-6)
[2021-05-14 10:49] LABS: Hematocrit 33.5 % (30.3-42.9); Hemoglobin 10.8 gm/dl (10.1-14.3)
[2021-05-14 11:12] LABS: Blood Urea Nitrogen 6 mg/dL (7-17); Calcium 9.9 mg/dL (8.4-10.2); Hemolysis Index 0
[2021-05-14 11:22] LABS: Creatine Kinase MB < 1.0 ng/mL (0.0-4.0)
[2021-05-14 11:23] LABS: BUN/Creatinine Ratio 20
[2021-05-14] MEDS ORDERED: SIMETHICONE 80 MG CHEW TAB PO PRN (11:37)
[2021-05-14] MEDS: HYDROcodone/ACETAMINOPHEN 5-325 MG TAB PO PRN ×2 (13:13→22:04)
--- NOTE | 2021-05-14 13:54 | Event Note ---
Date: 05/14/21 Patient's labs are within normal limits and EKG with tachycardia and NSR. Briefly discussed the case with Dr. Nilesh Loredo MD. Will complete serial cardiac enzymes and start beta hector although it's unlikely that this is cardiac in origin given her negative pre-operative testing. Will start iv fluids. Patient states she is not currently experiencing any pain or discomfort. Will continue to monitor and consult cardiology if there is any indication that this is caused by a cardiac source.
[2021-05-14] MEDS: METOPROLOL TARTRATE 25 MG TAB PO SCH ×2 (14:26→21:44)
[2021-05-14] MEDS ORDERED: SODIUM CHLORIDE 0.9% 1000 ML 1,000 ML IV SCH (14:30)
[2021-05-14 16:09] LABS: Creatine Kinase MB < 1.0 ng/mL (0.0-4.0)
[2021-05-14] MEDS: ACETAMINOPHEN 325 MG TAB PO PRN (20:21)
[2021-05-14] MEDS: DOCUSATE SODIUM 100 MG CAP PO SCH (21:44)
[2021-05-14 23:12] LABS: Creatine Kinase MB < 1.0 ng/mL (0.0-4.0)
[2021-05-15] MEDS: HYDROcodone/ACETAMINOPHEN 5-325 MG TAB PO PRN (07:30)
[2021-05-15 09:24] LABS: Hematocrit 29.4 % (30.3-42.9); Hemoglobin 9.7 gm/dl (10.1-14.3); Mean Corpuscular HGB Conc 33 % (30-34); Mean Corpuscular Volume 91 fl (79-97); Platelet Count 225 K/mm3 (140-440); Red Blood Count 3.22 M/mm3 (3.65-5.03); Red Cell Distribution Width 14.5 % (13.2-15.2)
[2021-05-15 09:47] LABS: Alanine Aminotransferase 13 units/L (7-56); Albumin 3.3 g/dL (3.9-5); Blood Urea Nitrogen 7 mg/dL (7-17); Calcium 9.2 mg/dL (8.4-10.2); Hemolysis Index 20
[2021-05-15 09:48] LABS: BUN/Creatinine Ratio 23
[2021-05-15] MEDS: amLODIPine 5 MG TAB PO SCH (10:16)
[2021-05-15] MEDS: ENOXAPARIN 40 MG/0.4 ML INJ SUB-Q SCH (10:17)
[2021-05-15] MEDS: DOCUSATE SODIUM 100 MG CAP PO SCH (10:17)
[2021-05-15] MEDS: METOPROLOL TARTRATE 25 MG TAB PO SCH (10:18)
[2021-05-15] MEDS: CLOPIDOGREL 75 MG TAB PO SCH (10:19)
[2021-05-15 10:20] VITALS: BP 122/50
--- NOTE | 2021-05-15 10:31 | Cat Scan Report ---
CTA CHEST WITH CONTRAST INDICATION / CLINICAL INFORMATION: chest pain, shortness of breath OMNI 350 100ML. TECHNIQUE: Axial CT images were obtained through the chest after injection of 100 cc of Omnipaque 350 IV contrast. 3 plane MIP and/or 3D reconstructions were produced. All CT scans at this location are performed using CT dose reduction for ALARA by means of automated exposure control. COMPARISON: None available. FINDINGS: PULMONARY ARTERIES: No pulmonary emboli. THORACIC AORTA: No significant abnormality. HEART: No significant abnormality. CORONARY ARTERY CALCIFICATION: None. MEDIASTINUM / ZEYNEP: No significant abnormality. PLEURA: No pleural effusion. No pneumothorax. LUNGS: There are two 5 mm nodules adjacent to the major fissure on the right. ADDITIONAL FINDINGS: None. UPPER ABDOMEN: No acute findings. SKELETAL STRUCTURES: No significant osseous abnormality. IMPRESSION: 1. No CT evidence for pulmonary embolism. 2. Single incidental pulmonary nodule(s) in the right lower lobe measuring 5 mm with perifissural/sub pleural characteristics. Recommendation according to Fleischner Society 2017 Guidelines: Low Risk or High Risk Patient: No routine follow-up. Signer Name: Dexter Cha MD Signed: 05/15/2021 10:27 AM Workstation Name: [id number]
--- NOTE | 2021-05-15 11:53 | Discharge Summary ---
Providers - Providers Date of Admission: 05/13/21 11:13 Date of discharge: 05/15/21 Attending physician: OSMIN BHATIA Hospitalization Condition: Good Pertinent studies: CTA of the chest, negative for PE or any acute pathology Hospital course: Patient with a history of an enlarging abdominal aortic aneurysm who was admitted to the hospital yesterday following percutaneous endovascular repair of her abdominal aortic aneurysm. The procedure went well. Following the procedure, the patient began to experience what she described as chest pain which was intermittent in nature. The patient was noted to be somewhat tachycardic and was started on a beta-hector overnight. On examination of this morning, the patient's chest pain was gone she was complaining however of some dyspnea. Given these vague symptoms, a CTA of the chest was ordered to rule out PE or any acute pathology and was negative. The patient will subsequently be discharged home. Lengthy discussion was held with patient regarding restrictions following discharge until she is seen by Dr. Bhatia in clinic. Was counseled that we are available for any concerns and to call anytime. Disposition: HOME / SELF CARE / HOMELESS Final Discharge Diagnosis (Prints w/discharge instructions): Abdominal aortic aneurysm Core Measure Documentation - Palliative Care Palliative Care/ Comfort Measures: Not Applicable - Core Measures Any of the following diagnoses?: none Exam - Constitutional Vitals: Temp Pulse Resp BP Pulse Ox 99.4 F 118 H 22 122/50 99 05/15/21 08:10 05/15/21 10:01 05/15/21 10:01 05/15/21 10:18 05/15/21 10:01 General appearance: Present: no acute distress - EENT Eyes: Present: EOM intact ENT: hearing intact - Neck Neck: Present: supple, normal ROM - Respiratory Respiratory effort: normal - Extremities Extremities: abnormal (Bilateral groin punctures are soft with no significant subcutaneous hematoma) - Abdominal General gastrointestinal: Present: deferred Female genitourinary: Present: deferred - Rectal Rectal Exam: deferred - Psychiatric Psychiatric: appropriate mood/affect, cooperative Plan Activity: advance as tolerated Weight Bearing Status: Weight Bear as Tolerated Diet: regular Wound: keep clean and dry, per your surgeon's advice Follow up with: DR JESSICA [Other] - 7 Days OSMIN BHATIA MD [Staff Physician] - 7 Days Prescriptions: Metoprolol [Lopressor TAB] 25 mg PO BID #180 tablet HYDROcodone/APAP 7.5-325 [[place] 7.5/325] 1 each PO Q6HR PRN #40 tablet PRN Reason: Pain Clopidogrel [Plavix] 75 mg PO QDAY #90 tablet
== END 2021-05-15 12:53 | disposition home or self-care (01) | DRG 269 ==
LOC: CATHLABREC 06:31 → IMCU 11:13
PROVIDERS: ADMIT Surgery Vascular Surgery; ATTEND Surgery Vascular Surgery
PROC: 04V03DZ Restriction of Abdominal Aorta with Intraluminal Device, Percutaneous Approach (ICD-10-PCS; principal; 2021-05-13)
DX: I71.4 Abdominal aortic aneurysm, without rupture (principal); I10 Essential (primary) hypertension; Z79.82 Long term (current) use of aspirin; Z88.0 Allergy status to penicillin
CPT/HCPCS: 34705; 34713; 36415; 71275; 80048; 80053; 82550; 82553; 84484; 85014; 85018; 85027; 85610; 85730; 93005; G0378; J3490; J7502; Q0162; C1725; C1751; C1760; C1769; C1874; C1887; C1894; J1170; J1644; J1650; J2704; J7030; Q9967

== ENCOUNTER 2021-09-08 10:04 | Outpatient (CLI) | payer OTHER ==
[2021-09-08 11:53] LABS: Blood Urea Nitrogen 12 mg/dL (7-17)
--- NOTE | 2021-09-08 19:11 | Cat Scan Report ---
CTA ABDOMEN AND PELVIS WITHOUT AND WITH CONTRAST INDICATION / CLINICAL INFORMATION: I71.4 ABDOMINAL AORTIC ANEURYSM W/O RUPTURE, PAIN. TECHNIQUE: Axial CT images were obtained through the abdomen and pelvis before and after after inject ion of 100 mL's of Omnipaque 350 IV contrast. 3 plane MIP / 3D reconstructions were produced. All CT scans at this location are performed using CT dose reduction for ALARA by means of automated exposure control. COMPARISON: 01/06/2021 FINDINGS: AORTA: There is an endovascular stent which extends from the suprarenal aorta and terminates as bilat eral common iliac stents. There is aneurysmal dilatation of the [place] inferior aorta just above the bifurcation, measuring up to 4.6 cm. RENAL ARTERIES: No significant abnormality. CELIAC ARTERY: Common origin celiacomesenteric trunk, no significant abnormality. SUPERIOR MESENTERIC ARTERY: Common origin celiacomesenteric trunk, no significant abnormality. INFERIOR MESENTERIC ARTERY: Opacified through collateral RIGHT ILIAC ARTERIES: Vascular stent within the proximal portion without extravascular opacification to suggest endoleak. There is aneurysmal dilatation of the [place] common iliac artery measuring up to 2.9 cm.. LEFT ILIAC ARTERIES: Vascular stent within the proximal portion without extravascular opacification t o suggest endoleak.. ADDITIONAL FINDINGS: None. SKELETAL: Scattered degeneration. IMPRESSION: 1. Status post endovascular repair of an aortoiliac aneurysm without evidence of endoleak or other co mplication. Signer Name: Arthur Rahman DO Signed: 09/08/2021 7:07 PM Workstation Name: [id number]
== END 2021-09-08 10:05 | disposition home or self-care (01) ==
LOC: CT 10:04
PROVIDERS: ATTEND Surgery Vascular Surgery
DX: I71.4 Abdominal aortic aneurysm, without rupture (principal)
CPT/HCPCS: 36415; 74174; 82565; 84520; Q9967